=== PATIENT | female | born 1945 | race Caucasian/White ===

== ENCOUNTER → 2016-12-08 | Outpatient (CLI) | payer MEDICARE, OTHER ==
[~2016-12-08] VITALS: Ht 167.6 cm; Wt 72.6 kg
[~2016-12-08] MED LIST: FLC100T; FLEC50TA18; WRF2.5T; WRF5T
--- NOTE | 2016-12-08 12:57 | Diagnostic Imaging Report ---
EXAMINATION: Dedicated right parotid ultrasound performed with ultrasound guidance provided for FNA performed by Dr. Bowden. Indication: Parotid nodule FINDINGS: Ultrasound images demonstrate a right parotid hypoechoic nodule. IMPRESSION: Ultrasound guidance provided for right parotid nodule FNA. Dictated by: Dictated on workstation # [id number]
== END ==
LOC: RAD 10:55
PROVIDERS: ATTEND Otolaryngology Otolaryngology/Facial Plastic Surgery
DX: K11.8 Other diseases of salivary glands (principal)
CPT/HCPCS: 76942

== ENCOUNTER → 2019-02-06 | Outpatient (CLI) | payer MEDICARE, OTHER ==
[~2019-02-06] VITALS: Ht 167 cm; Wt 72.0 kg
[~2019-02-06] MED LIST changes: +CATHETER FLUSH 10 ML SYR IV PRN
[2019-02-06 09:19] VITALS: BP 134/80
--- NOTE | 2019-02-07 08:06 | STRESS TEST ---
DATE OF SERVICE: 02/06/2019 EXERCISE MYOVIEW STRESS TEST REPORT: REFERRING PHYSICIAN: Dr. Jain Baseline heart rate is 63. Baseline blood pressure 134/80. Baseline EKG is sinus rhythm with no ischemic changes. In summary, the patient was injected with 10.43 mCi of technetium-99 Myoview and the resting images were obtained. Then, the patient started exercising with a baseline heart rate, blood pressure and EKG mentioned above. The patient was able to exercise for a total of 6 minutes and 30 seconds on standard Jose protocol. With peak exercise level, EKG was showing nondiagnostic changes. The patient was injected with 28.7 mCi of technetium-99 Myoview. During recovery, heart rate and blood pressure returned to baseline. EKG returned to baseline. The resting and stress images were reviewed and compared in the short axis, horizontal long axis, and vertical long axis views. Review of the images showed good radiotracer uptake with no significant ischemia or infarction on SPECT images. SSS is 1, SDS 1, TID value 0.99. On the gated images, the left ventricle appeared to be normal size with normal contractility. Calculated ejection fraction 65%. CONCLUSION: 1. Good exercise tolerance for a total of 6 minutes 30 seconds on standard Jose protocol, total of 7.9 METS achieving 91% of maximum expected heart rate. 2. Appropriate heart rate and blood pressure response to exercise returned to baseline during recovery. 3. Nondiagnostic EKG changes with exercise returned to baseline during recovery. 4. No significant ischemia or infarction on SPECT images. 5. Normal left ventricular size with normal contractility. Calculated ejection fraction is 65%. Job ID: [id number] DocumentID: [id number] Dictated Date: 02/07/2019 06:44:08 Corporate Director Of Human Resources Date: 02/07/2019 08:05:48 Dictated By: GUILHERME JAMES MD
== END ==
LOC: CARD 07:21
PROVIDERS: ATTEND Internal Medicine Cardiovascular Disease
DX: I48.91 Unspecified atrial fibrillation (principal); E78.2 Mixed hyperlipidemia; R07.9 Chest pain, unspecified; Z82.49 Family history of ischemic heart disease and other diseases of the circulatory system
CPT/HCPCS: 78452; 93017; 93306

== ENCOUNTER → 2020-07-01 | Outpatient (CLI) | payer MEDICARE, OTHER ==
[~2020-07-01] VITALS: Ht 167 cm; Wt 72.0 kg
[2020-07-01 15:47] VITALS: BP 126/86
--- NOTE | 2020-07-01 15:47 | Cardiology Stress Test Report ---
Stress Test Report Date of Procedure/Referring: Date of Procedure: Jul 01, 2020 PCP Guilherme Younger MD Admitting Physician Ramos Jain DO Indications: HTN Baseline Heart Rate: 66 Baseline Blood Pressure: Blood Pressure Systolic: 126 Blood Pressure Diastolic: 86 Baseline EKG: Baseline EKG: NSR Summary: After explaining the procedure and details to the patient, she signed the consent and was brought to the stress nuclear laboratory. Patient exercised on standard Jose protocol, EKG, heart rate and blood pressure were monitored continuously, resting and stress doses of radio tracer were injected, imaging was acquired and reviewed in the short axis, horizontal long axis and vertical long axis views Patient was able to exercise for a total of 6:30 minutes on Jose protocol, METs 79.9 Maximum heart rate 130 Maximum blood pressure 159/86 Stress EKG, Minimal nondiagnostic changes Recovery EKG, Return to baseline TID: 0.97 SSS: 3 SDS: 1 EF: 66 Conclusion: 1. Good exercise tolerance for a total of 6 minutes and 30 seconds on standard Jose protocol, 7.9 METS achieving 89% of maximal expected heart rate 2. Appropriate heart rate and blood pressure response to exercise return to baseline during recovery 3. Nondiagnostic EKG changes with exercise return to baseline during recovery 4. No significant ischemia or infarction on SPECT images 5. Normal left ventricular size, EF 66% GUILHERME YOUNGER MD Jul 01, 2020 15:47
== END ==
LOC: CARD 09:51
PROVIDERS: ATTEND Internal Medicine Cardiovascular Disease
DX: I11.9 Hypertensive heart disease without heart failure (principal); I34.0 Nonrheumatic mitral (valve) insufficiency
CPT/HCPCS: 78452; 93017; 93306

== ENCOUNTER → 2020-07-21 | Outpatient (CLI) | payer MEDICARE ==
[~2020-07-21] MED LIST changes: -CATHETER FLUSH 10 ML SYR IV PRN
--- NOTE | 2020-07-21 14:05 | Diagnostic Imaging Report ---
PROCEDURE: MRI lumbar spine. TECHNIQUE: Multiplanar, multisequence MRI of the lumbar spine was performed without contrast. INDICATION: Chronic low back pain. Pain radiating into right hip. COMPARISON: None. FINDINGS: There are 5 lumbar-type vertebral bodies for the purposes of this report. Grade 1 retrolisthesis of L2 on L3. Vertebral body heights preserved. Modic type I degenerative endplate changes at L1-L2 and L2-L3. Schmorl's nodes in the superior endplates of L2 on L3. No abnormal signal in the conus which terminates at L1. Normal morphology of the cauda equina. Visualized pelvis and paravertebral soft tissues are unremarkable. L1-L2: Annular disc bulge and ligamentous hypertrophy result in mild spinal canal and bilateral lateral recess narrowing. Facet arthropathy also contributes to mild bilateral neural foraminal narrowing. L2-L3: Annular disc bulge, ligamentous hypertrophy and facet arthropathy result in moderate bilateral lateral recess narrowing. Mild to moderate bilateral neural foraminal narrowing. No substantial spinal canal narrowing. L3-L4: Annular disc bulge and facet arthropathy result in severe left and moderate right lateral recess narrowing. Mild to moderate bilateral neural foraminal narrowing. No substantial spinal canal narrowing. L4-L5: Annular disc bulge, facet arthropathy and ligamentous hypertrophy result in moderate bilateral lateral recess and mild spinal canal narrowing. Moderate left and mild right neural foraminal narrowing. L5-S1: Moderate facet arthropathy. No substantial spinal canal, lateral recess or neural foraminal narrowing. IMPRESSION: 1. Spondylotic changes result in mild and moderate scattered lateral recess and neural foraminal narrowing detailed above level by level. 2. No high-grade spinal canal stenosis. 3. No acute osseous findings. Modic type I degenerative endplate changes at L1-L3. Dictated by: Dictated on workstation # [id number]
== END ==
LOC: RAD 12:45
PROVIDERS: ATTEND Orthopaedic Surgery
DX: M47.816 Spondylosis without myelopathy or radiculopathy, lumbar region (principal); M51.36 Other intervertebral disc degeneration, lumbar region; M48.061 Spinal stenosis, lumbar region without neurogenic claudication; M24.28 Disorder of ligament, vertebrae; M43.16 Spondylolisthesis, lumbar region
CPT/HCPCS: 72148

== ENCOUNTER → 2021-07-22 | Outpatient (CLI) | payer MEDICARE | LOC: CARD 09:00 | PROVIDERS: ATTEND Physician Assistant | DX: I49.9 Cardiac arrhythmia, unspecified (principal) | CPT/HCPCS: 93225; 93226 ==

== ENCOUNTER → 2022-03-23 | Outpatient (CLI) | payer MEDICARE ==
--- NOTE | 2022-03-23 18:09 | Diagnostic Imaging Report ---
CLINICAL INDICATION: Patient with low back pain. EXAM: X-ray of the lumbar spine, AP and lateral views. COMPARISON: MRI of the lumbar spine without contrast dated 07/21/2020. FINDINGS: There is no acute lumbar spine fracture or dislocation. There is subtle left curvature of the thoracolumbar spine. There are hypertrophic spurs throughout the lumbar spine. There is severe loss of disk space height at the L1-L2 and L2-L3 levels which was also noted on the prior study. There is lower lumbar spine facet arthropathy. IMPRESSION: There is multilevel lumbar spine degenerative disease with no interval acute fracture or dislocation. Dictated by: Dictated on workstation # [id number]
== END ==
LOC: RAD FS 11:02
PROVIDERS: ATTEND Nurse Practitioner
DX: M47.816 Spondylosis without myelopathy or radiculopathy, lumbar region (principal)
CPT/HCPCS: 72100

== ENCOUNTER → 2023-02-15 | Day surgery (SDC) | payer MEDICARE ==
[~2023-02-15] VITALS: Ht 167.6 cm; Wt 72.2 kg
[~2023-02-15] MED LIST changes: +LIDOCAINE 1% INJ 20 ML VIAL INJ ONE; +LIDOCAINE 1% INJ 20 ML VIAL ONE
--- NOTE | 2023-02-15 13:44 | Implantation of Loop Monitor ---
Implant of Loop Monitior IMPLANTATION OF LOOP MONITOR REPORT DATE OF PROCEDURE: 02/15/23 PREOP DIAGNOSIS: Paroxysmal atrial fibrillation POSTOP DIAGNOSIS: Paroxysmal atrial fibrillation PROCEDURE DETAILS: The patient is a 77 female with history of paroxysmal atrial fibrillation requiring long-term surveillance. Therefore implantable loop recorder was discussed and agreed with the patient. Informed consent was taken. All risks and complications were discussed at length. The patient was draped and prepped in the usual sterile fashion. Local anesthesia was lidocaine, which was given in the substernal area close to the 4th intercostal space. Loop monitor TheraCoattronic with serial number [id number] was implanted according to the protocol. Steri- Strips were placed at the end of the procedure. There were no complications and the patient tolerated the procedure well. ANESTHESIA: Local anesthesia with lidocaine. COMPLICATIONS: None CONTRAST/FLUOROSCOPY: None CONCLUSION: Successful implantation of loop monitor with no complication FINAL DIAGNOSIS: Paroxysmal atrial fibrillation Palpitation Hypertension GUILHERME JAMES MD Feb 15, 2023 13:44
== END | disposition home or self-care (01) ==
LOC: CATH 11:30
PROVIDERS: ATTEND Internal Medicine Cardiovascular Disease
DX: I48.0 Paroxysmal atrial fibrillation (principal); R00.2 Palpitations; I10 Essential (primary) hypertension; E78.5 Hyperlipidemia, unspecified; I65.23 Occlusion and stenosis of bilateral carotid arteries; E78.2 Mixed hyperlipidemia; I49.9 Cardiac arrhythmia, unspecified; Z79.01 Long term (current) use of anticoagulants; Z79.899 Other long term (current) drug therapy; Z82.49 Family history of ischemic heart disease and other diseases of the circulatory system
CPT/HCPCS: 33285